=== PATIENT | male | born 1945 | race Caucasian/White ===

== ENCOUNTER 2017-11-08 14:48 | Emergency (ER) | payer MEDICARE ==
[2017-11-08] MEDS ORDERED: predniSONE 20 MG TAB ONE (15:26)
--- NOTE | 2017-11-08 16:17 | RAD ---
TWO VIEWS OF THE CHEST 11/08/17 COMPARISON: 08/21/16 HISTORY: Shortness of breath, fever and cough. FINDINGS: There is free intraperitoneal air beneath bilateral hemidiaphragms. Catheter tubing overlies the expe cted location of the stomach. Nonspecific increased linear interstitial densities are noted bilateral ly with pulmonary hyperinflation. No focal consolidation or alveolar edema. Vertically oriented increased linear density noted in medial left lung base, likely on the basis of v ascular structures. IMPRESSION: Findings concerning for significant free intraperitoneal air beneath bilateral hemidiaphragms, suspic ious for bowel perforation. Results called to Dr. Cesar, 4:05 p.m., 11/08/17. Code CR POS: [facility]
== END 2017-11-08 16:56 | disposition home or self-care (01) ==
LOC: SCSER 14:48
DX: J44.1 Chronic obstructive pulmonary disease with (acute) exacerbation (principal); F41.9 Anxiety disorder, unspecified; F32.9 Major depressive disorder, single episode, unspecified; Z87.891 Personal history of nicotine dependence
CPT/HCPCS: 71020; J7506; J7620

== ENCOUNTER 2017-11-14 05:55 | Day surgery (SDC) | payer OTHER ==
[2017-11-13 12:43] VITALS: BMI 31.9
--- NOTE | 2017-11-14 08:24 | HP ---
CHIEF COMPLAINT: ReShape balloon. HISTORY OF PRESENT ILLNESS: Patient is a 71-year-old male, who has had a ReShape balloon in place fo r over 6 months. He is here for removal. PAST MEDICAL HISTORY: Significant for gastroesophageal reflux, anxiety, depression, hyperlipidemia. PAST SURGICAL HISTORY: He had a cholecystectomy, neck surgery, and ReShape balloon. MEDICATIONS: Calcium, multivitamins, omeprazole, lorazepam, duloxetine, eszopiclone, Anoro Ellipta, atorvastatin, CoQ10. ALLERGIES: No known drug allergies. FAMILY HISTORY: Father . Family history unknown. Mother with cancer. SOCIAL HISTORY: He is . No alcohol, occasional tobacco. PHYSICAL EXAMINATION: VITAL SIGNS: Height 68, weight 229, body mass index 34. GENERAL: Well-developed, well-nourished male, in no apparent distress. HEENT: Unremarkable. LUNGS: Clear. HEART: Regular rate and rhythm. ABDOMEN: Soft, nontender, good bowel sounds. EXTREMITIES: Good pulses. No pedal edema. ASSESSMENT: ReShape balloon. PLAN: Endoscopic removal. CONSENT: I discussed the planned procedure as well as risk of bleeding, perforation, and aspiration. He understands and gives informed consent.
--- NOTE | 2017-11-14 08:39 | OP ---
PREOPERATIVE DIAGNOSIS: ReShape balloon. SURGEON: Jack Gonzalez M.D. PROCEDURE PERFORMED: Esophagogastroduodenoscopy with removal of ReShape balloon. INDICATIONS: This is a 71-year-old male who has had a ReShape balloon for now over 6 months, has had good success. He is here for removal. FINDINGS: Intact system. PROCEDURE: After informed consent was obtained, the patient was taken to the endoscopy suite, given IV sedation and she was placed in the left lateral decubitus position. Video endoscope was inserted under direct vision through the esophagus into the stomach. Stomach insufflated with air. The first balloon was encountered. The drill was then inserted through the channel on the scope applied to th e balloon surface. The balloon was punctured. The catheter inserted into the balloon. The blade re tracted and suction applied and 450 mL of fluid removed, then the catheter was retracted and the seco nd balloon found. That was advanced. The drill was used to perforate the balloon wall. The cathete r inserted. The blade retracted and again 450 mL removed. The aspirating catheter was removed from the scope and an alligator grasper was then inserted. Each balloon was grasped and further perforate d by tearing the balloon with the alligator grasper, then this was removed, nipple was found. The sn are inserted. It was snared grasped and the balloon system was removed intact. Then the scope was r einserted into the stomach. Gastric mucosa inspected. There was no evidence of ulcerations or injur y. No abnormalities seen. The scope retroflexed. The stomach decompressed and the scope removed. Patient tolerated the procedure well and transferred to recovery in good condition.
[2017-11-14] MEDS ORDERED: Propofol 200 MG/20 ML VIAL ONE (15:21)
== END 2017-11-14 09:10 ==
LOC: SDC 05:55
PROVIDERS: ATTEND Surgery
PROC: 0DP Gastrointestinal System, Removal (ICD-10-PCS; principal; 2017-11-14)
DX: Z46.51 Encounter for fitting and adjustment of gastric lap band (principal); K21.9 Gastro-esophageal reflux disease without esophagitis; F32.9 Major depressive disorder, single episode, unspecified; F41.9 Anxiety disorder, unspecified; E78.5 Hyperlipidemia, unspecified; J44.9 Chronic obstructive pulmonary disease, unspecified; Z79.899 Other long term (current) drug therapy; Z91.013 Allergy to seafood; Z98.1 Arthrodesis status; Z90.49 Acquired absence of other specified parts of digestive tract; Z98.890 Other specified postprocedural states; Z87.891 Personal history of nicotine dependence
CPT/HCPCS: J2704

== ENCOUNTER 2017-12-19 10:03 | Outpatient (CLI) | payer MEDICARE | END 2017-12-19 10:04 | disposition home or self-care (01) | LOC: BICRAD 10:03 | PROVIDERS: ATTEND Neurological Surgery | DX: M47.22 Other spondylosis with radiculopathy, cervical region (principal); Z98.1 Arthrodesis status | CPT/HCPCS: 72040 ==

== ENCOUNTER 2018-01-09 08:52 | Outpatient (CLI) | payer MEDICARE ==
--- NOTE | 2018-01-09 09:59 | RAD ---
CERVICAL SPINE 4 VIEWS: HISTORY: Cervical radiculopathy. COMPARISON: 02/23/15. FINDINGS: Anterior plate and screws again noted transfixing C6, C7, and T1. Loss of disk space noted at C3-4, C4-5, and C5-6 with hypertrophic spurs from these vertebrae which appear similar to the prior exam, b ut the degenerative changes have progressed somewhat since that study. Posterior spondylitic changes are again noted at C3-4, C4-5, and C5-6. IMPRESSION: Prominent degenerative changes at C3-4, C4-5, and C5-6. Degenerative changes have progressed since t he 02/23/15 exam. POS: [facility]
--- NOTE | 2018-01-09 11:21 | MRI ---
CERVICAL SPINE MRI WITHOUT CONTRASTs: Date: 01/09/18 HISTORY: Cervical radiculopathy. Cervical fusion. Bilateral arm weakness and pain. COMPARISON: None. CORRELATION; Cervical spine radiograph dated 01/09/18. TECHNIQUE: MRI cervical spine is performed without intravenous Gadolinium administration. Multisequential, multi planar imaging performed. FINDINGS: There is metallic susceptibility artifact associated with anterior fusion plate at C6, C7, and T1. Re mainder of the cervical vertebra demonstrate appropriate T1 marrow signal intensity. No significant S TIR hyperintensity to suggest vertebral body edema or ligamentous injury. Visualized brain parenchyma, cervicomedullary junction, cervical cord, and the upper thoracic cord bean ve a normal size and signal intensity. C2-C3: No significant disc osteophyte complex. No significant central canal stenosis. Foramina patent. C3-4: Broad based disc osteophyte complex abuts the thecal sac. There is mild mass effect upon the right he micord. Overall, there is mild central canal stenosis. Degenerative changes in bilateral uncovertebra l joints result in moderate bilateral foraminal narrowing. C4-C5: Broad based disc osteophyte complex abuts the thecal sac. There is minimal mass effect upon the cervi rony cord. No T2 hyperintensities in the cord. Mild central canal stenosis. Degenerative changes of th e right uncovertebral joint result in moderate right foraminal narrowing. Left neural foramen is juarez nt. C5-C6: Broad based disc osteophyte complex abuts the thecal sac. Ventral subarachnoid space is still maintai alyssia. Mild central canal stenosis. No T2 hyperintensity of the cord. Degenerative changes in bilateral uncovertebral joints result in moderate right and left foraminal narrowing. C6-C7: No obvious disc osteophyte complex. No high grade central canal stenosis. Foramina are patent. C7-T1: No obvious disc osteophyte complex. No significant central canal stenosis. Neural foramina are patent bilaterally. T1-T2: No significant disc osteophyte complex. No significant central canal stenosis. Neural foramina are pa tent. IMPRESSION: 1. Cervical fusion changes as above. 2. Varying degrees of central canal stenosis and foraminal narrowing as above. No high grade central canal stenosis. However, there is multilevel moderate foraminal narrowing as defined above. POS: OFF
== END 2018-01-09 08:53 | disposition home or self-care (01) ==
LOC: TBSIIMAG 08:52
PROVIDERS: ATTEND Neurological Surgery
DX: M47.22 Other spondylosis with radiculopathy, cervical region (principal); M99.81 Other biomechanical lesions of cervical region; Z98.1 Arthrodesis status
CPT/HCPCS: 72040; 72141

== ENCOUNTER 2018-02-20 22:16 | Inpatient (IN) | payer MEDICARE ==
[2018-02-20] MEDS ORDERED: Ibuprofen 800 MG TAB ONE (22:59)
[2018-02-20 23:17] LABS: Bilirubin Negative (Negative); Blood, Urine Trace (Negative); Clarity CLOUDY (Clear); Glucose, Urine (Dipstick) Negative (Negative); Leukocyte Large (Negative); Nitrite Negative (Negative); Protein, Urine (Dipstick) Negative (Neg-Trace); Specific Gravity, Urine 1.022 (1.002-1.036); Urobilinogen 0.2 mg/dL (0.2-1.0)
[2018-02-20 23:19] LABS: Bacteria/HPF Rare-Few HPF (None Seen); Pathc Cast-AUWi Flag 0.87 (0-2.49); RBC/HPF 0-3 HPF (0-3); Squamous Epithelial None Seen HPF (0-3)
--- NOTE | 2018-02-20 23:24 | RAD ---
PORTABLE AP CHEST X-RAY 02/20/18 HISTORY: Fever and anxiety. COMPARISON: 11/08/17. FINDINGS: There is increased patchy density at the right lung base which may be related to pneumonia. There is soft tissue density overlying the left lung base which limits evaluation. Cardiac silhouette is magni fied by projection but stable in size compared to the prior study and is probably mildly enlarged. Th e pulmonary vasculature is within normal limits. Vascular calcifications seen in the thoracic aorta. IMPRESSION: 1. Increased density medial right lung base worrisome for pneumonia. Followup to resolution is r ecommended. 2. Suboptimal evaluation of the left lung base. POS: [facility]
[2018-02-20 23:31] LABS: Hyaline Casts/LPF 0-3 HYALINE CAST LPF (0-3 Hyaline)
[2018-02-20] MEDS ORDERED: Azithromycin 500 MG VIAL ONE (23:48)
[2018-02-20 23:51] LABS: #Basophils 0.1 thou/uL (0.0-0.2); #Lymphocytes 0.9 thou/uL (1.20-3.40); #Monocytes 1.5 thou/uL (0.11-0.59); #Neutrophils 9.8 thou/uL (1.40-6.50); %Basophils 0.6 % (0.0-1.0); %Eosinophils 0.3 % (0.0-10.0); %Lymphocytes 7.3 % (21.0-51.0); %Monocytes 12.2 % (0.0-10.0); %Neutrophils 79.7 % (42.0-75.0); Hemoglobin 15.3 g/dL (14.0-18.0); Mean Corpuscular HGB CONC 33.1 g/dL (32.0-36.0); Mean Corpuscular Hemoglobin 30.8 pg (27.0-31.0); Mean Corpuscular Volume 93.1 fl (80.0-94.0); Mean Platelet Volume 6.9 fL (7.4-10.4); Platelet Count 203 thou/uL (130-400); RBC Distribution Width 13.6 % (11.5-14.5); Red Blood Cell (RBC) Count 4.98 mill/uL (4.70-6.10); White Blood Cell (WBC) Count 12.2 thou/uL (4.8-10.8)
[2018-02-21 00:05] LABS: ALT (SGPT) 14 U/L (8-55); AST (SGOT) 16 U/L (5-34); Albumin 3.6 g/dL (3.4-4.8); Alkaline Phosphatase 64 U/L (40-150); Anion Gap 13 mmol/L (10-20); BUN (Urea Nitrogen) 24 mg/dL (8.4-25.7); Bilirubin, Total 1.3 mg/dL (0.2-1.2); Calc. Creatinine Clearance 0 mL/min (70-130); Calcium 8.6 mg/dL (7.8-10.44); Carbon Dioxide 23 mmol/L (23-31); Chloride 103 mmol/L (98-107); Estimated GFR-MDRD 68; Globulin 3.1 g/dL (2.4-3.5); Glucose 116 mg/dL (83-110); Potassium 3.9 mmol/L (3.5-5.1); Protein, Total 6.7 g/dL (5.8-8.1); Sodium 135 mmol/L (136-145)
--- NOTE | 2018-02-21 00:52 | PDOC.FPRHP ---
- History of Present Illness Chief Complaint: confused, SOB History of Present Illness: 72 yo male with pmhx of copd presents with confusion that started this evening. He denies shortness of breath, chest pain, cough, sputum production. He states he tilled his garden this afternoon, then had a spell where he got hot then started sweating and got cold. He called his daughter in [place] who then called EMS who brought him into the hospital. His daughter called EMS and reported that he had told her that his shortness of breath had worsened over the past 3 days. ED Course: He was given a 30ml/kg bolus of NS, an additional 1 L of NS, Azithromicin and Rocephin, as well as ibuprofen 800mg in the ER. - Allergies/Adverse Reactions Allergies Allergy/AdvReac Type Severity Reaction Status Date / Time iodine Allergy Verified 02/21/18 03:33 latex Allergy Verified 02/21/18 03:33 shellfish derived Allergy fresh Verified 02/21/18 03:33 shrimp/can eat cooked shrimp Allergy Verified 02/21/18 03:33 - Home Medications Medication Instructions Recorded Confirmed Type Acetaminophen [Tylenol Regular 650 mg PO Q4H PRN tab 02/21/18 Rx Strength] Azithromycin 250 mg PO DAILY #8 tablet 02/21/18 Rx Cefdinir [Omnicef] 300 mg PO BID #10 cap 02/21/18 Rx Umeclidinium/Vilanterol [Anoro 1 puff INH DAILY 02/21/18 02/21/18 History Ellipta 62.5/25 MCG INH] predniSONE 40 mg PO DAILY #10 tab 02/21/18 Rx - History PMHx: COPD, anxiety, depression, GERD, HLD PSHx: cholecystectomy, stomach balloon removed in October (was initially placed for weight loss). FHx:noncontributory Social: Former smoker. 2 ppd for 40 yrs. Quit 3 years ago. Denies alcohol or drug use. - Review of Systems General: reports: fever/chills, fatigue. denies: weight/appetite/sleep changes , night sweats ENT: denies: nasal congestion, rhinorrhea Respiratory: denies: cough, congestion, shortness of breath Cardiovascular: denies: chest pain, palpitation, edema, paroxysmal nocturnal dyspnea Gastrointestinal: denies: nausea, vomiting, diarrhea, constipation Genitourinary: denies: incontinence, polyuria Skin: denies: rashes, lesions, jaundice Musculoskeletal: denies: pain, tenderness, stiffness, swelling Neurological: reports: other (confusion). denies: numbness, syncope, seizure Psychological: denies: anxiety, depression - Vital signs BP: 132/52 HR: 94 RR: 18-22 Tmax: 101.7 Pox: 92% on 3L Wt: 104kg - Physical Exam Constitutional: NAD, awake, alert and oriented, well developed HEENT: normocephalic and atraumatic, PERRLA Neck: no LAD, no JVD, no thyromegaly Heart: RRR, normal S1/S2, no murmurs/rubs/gallops -Lungs: decreased breath sounds bilaterally, wheezing on the right side, crackles bilaterally in lower lung lobes Abdomen: soft, non-tender, bowel sounds present, no masses/distention Musculoskeletal: normal structure, normal tone Neurological: no focal deficit, normal sensation Skin: no rash/lesions, capillary refill <2 seconds Heme/Lymphatic: no unusual bruising or bleeding, no purpura Psychiatric: normal mood and affect, good judgment and insight FMR H&P: Results - Labs Result Diagrams: 02/21/18 04:27 02/21/18 04:27 Lab results: WBC 12.2 thou/uL (4.8-10.8) H 02/20/18 23:24 Hgb 15.3 g/dL (14.0-18.0) 02/20/18 23:24 Hct 46.3 % (42.0-52.0) 02/20/18 23:24 MCV 93.1 fl (80.0-94.0) 02/20/18 23:24 Plt Count 203 thou/uL (130-400) 02/20/18 23:24 Neutrophils % 79.7 % (42.0-75.0) H 02/20/18 23:24 Sodium 135 mmol/L (136-145) L 02/20/18 23:24 Potassium 3.9 mmol/L (3.5-5.1) 02/20/18 23:24 Chloride 103 mmol/L (98-107) 02/20/18 23:24 Carbon Dioxide 23 mmol/L (23-31) 02/20/18 23:24 BUN 24 mg/dL (8.4-25.7) 02/20/18 23:24 Creatinine 1.07 mg/dL (0.6-1.3) 02/20/18 23:24 Glucose 116 mg/dL (83-110) H 02/20/18 23:24 Lactic Acid 1.3 mmol/L (0.5-2.2) 02/20/18 23:24 Calcium 8.6 mg/dL (7.8-10.44) 02/20/18 23:24 Total Bilirubin 1.3 mg/dL (0.2-1.2) H 02/20/18 23:24 AST 16 U/L (5-34) 02/20/18 23:24 ALT 14 U/L (8-55) 02/20/18 23:24 Alkaline Phosphatase 64 U/L (40-150) 02/20/18 23:24 Serum Total Protein 6.7 g/dL (5.8-8.1) 02/20/18 23:24 Albumin 3.6 g/dL (3.4-4.8) 02/20/18 23:24 Urine Ketones Negative mg/dL (Negative) 02/20/18 23:12 Urine Blood Trace (Negative) H 02/20/18 23:12 Urine Nitrite Negative (Negative) 02/20/18 23:12 Ur Leukocyte Esterase Large (Negative) H 02/20/18 23:12 Urine RBC 0-3 HPF (0-3) 02/20/18 23:12 Urine WBC Greater Than 50-TNTC HPF (0-3) H 02/20/18 23:12 Ur Squamous Epith Cells None Seen HPF (0-3) 02/20/18 23:12 Urine Bacteria Rare-Few HPF (None Seen) 02/20/18 23:12 - Radiology Interpretation Chest x-ray Status: image reviewed by me, report reviewed by me (RLL infiltrate, difficult to see left lung base) FMR H&P: A/P - Problem List (1) Sepsis Status: Acute Code(s): A41.9 - SEPSIS, UNSPECIFIED ORGANISM (2) Acute respiratory failure with hypoxia Status: Acute Code(s): J96.01 - ACUTE RESPIRATORY FAILURE WITH HYPOXIA (3) Pneumonia Status: Acute Code(s): J18.9 - PNEUMONIA, UNSPECIFIED ORGANISM (4) COPD exacerbation Status: Acute Code(s): J44.1 - CHRONIC OBSTRUCTIVE PULMONARY DISEASE W (ACUTE ) EXACERBATION (5) Hypertension Status: Acute Code(s): I10 - ESSENTIAL (PRIMARY) HYPERTENSION (6) Anxiety and depression Status: Chronic Code(s): F41.9 - ANXIETY DISORDER, UNSPECIFIED; F32.9 - MAJOR DEPRESSIVE DISORDER, SINGLE EPISODE, UNSPECIFIED (7) HLD (hyperlipidemia) Status: Acute Code(s): E78.5 - HYPERLIPIDEMIA, UNSPECIFIED (8) GERD (gastroesophageal reflux disease) Status: Acute Code(s): K21.9 - GASTRO-ESOPHAGEAL REFLUX DISEASE WITHOUT ESOPHAGITIS - Plan 72 yo male with a pmhx of COPD presents via EMS with confusion, shortness of breath, and a fever, admitted for acute hypoxic respiratory failure and sepsis 2 /2 pneumonia, a COPD exacerbation, and a UTI. 1.)Acute hypoxic respiratory failure- 2/2 right lower lobe PNA and a COPD exacerbation. We admitted him to inpatient medical. He is currently requiring 3L of O2 to maintain a saturation in the low 90s. We will continue his O2 and wean as tolerated. We will also start him on azithromicin and rocephin for his pneumonia, and prednisone with duonebs sidney, and albuterol prn for his copd exacerbation. 2.)Sepsis 2/2 right lower lobe pna and a copd exacerbation-see plan above. In addition we sent blood and urine cultures as his UA showed +LE and few bacteria. We will provide tylenol prn for fever. 3.)Right lower lobe pna-the cxr could not evaluate his left lower lung field. So we ordered a 2 view standing cxr to futher evaluate. He was placed on antibiotics as stated above. He can likely be weaned to PO antibiotics tomorrow. 4.)COPD exacerbation-states he has oxygen at home but does not use it. He is currenlty requiring 3L which is new for him. We started him on duonebs scheduled every 4 hours and albuterol prn for shortness of breath. We also started him on prednisone 40mg daily for a total of 5 days and a zpack and rocephin for antibiotics. He can be transitioned to omnicef tomorrow. 5.) Asymptomatic bacteruria-We sent a urine culture. Pt denies dysuria, frequency. 6.)HTN-controlled. we will restart him on his home medications 7.)HLD-controlled. we will restart him on his home medications 8.)GERD-controlled. we will restart him on his home medications 9.)Anxiety-controlled. we will restart him on his home meds 10.)Depression-controlled. we will restart him on his home meds 11.)COPD-uncontrolled. see #1,2, and 4; additionall he couldn't remember what he takes for COPD management. He would likely benefit from albuterol prn and pulmicort daily. Dispo: Pt wants to be discharged early tomorrow morning for a memorial service. He has home O2, just does not use it very often. FMR H&P: Upper Level - Pertinent history 72 yo HF with PMHx COPD, former tobacco use presented to ED for SOB and confusion. Per ED record, pt told his daughter about worsening SOB over last 3 days. This afternoon, pt endorses feeling very confused for period of a few hours. He also endorsed feeling very warm followed by episode of chills. Pt has hx COPD with oxygen at home although rarely used per pt. Denies ever requiring hospitalization for COPD. Denies cough, congestion, sore throat, N/V/D. Denies dysuria. Denies joint pain. Febrile to 101.7 in ED. O2 84% so placed on oxygen. In ED, given IV fluids and abx. Pts confusion resolved. Breathing comfortably following breathing treatment and concurrent oxygen supplementation. - Pertinent findings PE: General NAD, relaxing in bed, nasal cannula in place Lungs: scattered coarse rales bilaterally, sporadic end expiratory wheezes, no rhonchi; no increased work of breathing Cardiac: RRR, S1 S2 present, no murmur/rub/gallop Abd: soft, nontender/nondistended, BS+ Skin: no rash or atypical lesions; cap refill < 2 secs - Plan Date/Time: 02/21/18 0048 1. Acute hypoxic respiratory failure 02 84% prior to oxygen supplementation. Hypoxia improved with oxygen. Stable. See below for mgmt. 2. Sepsis 2/2 RLL PNA vs COPD exacerbation. Meets sepsis criteria with WBCs, HR , and temp. Fevers documented in ED. CXR suggests potential RLL infiltrate with difficult to assess LLL due to soft tissue artifact. Plan to repeat CXR with standing 2 view approach to better assess lung bases. Pt denies cough or other upper respiratory symptoms. Fever and confusion point towards an infectious process. CURB-65 of 3 puts at higher risk of mortality. SOB, hypoxia, and exam with diffuse wheezing/rales suggest potential COPD exacerbation in addition to or in place of PNA dx. Blood cx drawn. Cont beta-lactam and macrolide. Add steroids to cover COPD exacerbation and improve overall lung function. Heavy IV fluids (s/p 3L in ED). Confusion already resolved. Pt resting comfortably with oxygen. NSAIDs for fever/pain. Reassess in AM. Admit to medical with expected 2 day stay. 3. Asymptomatic bacteriuria. UA shows >50 WBCs, + leukocytes, and rare bacteria. Cloudy urine visualized. Check urine culture. Asymptomatic. Rocephin would cover an infection if present. 4. COPD. Continue home meds. Duonebs prn. May have offered most improvement for symptoms in ED treatment. Start steroids see above. 4. Anxiety/depression. Cont home meds. 5. Hyperlipidemia. Cont home meds. 6. Prophylaxis. Prophylactic lovenox. I, Alexandr Pearson, have evaluated this patient and agree with findings/plan as outlined by internship resident. Pertinent changes/additions are listed here. Attending Addendum - Attending Addendum Date/Time: 02/21/18723 I personally evaluated the patient and discussed the management with Dr. Lawson and Michel. I agree with the History, Examination, Assessment and Plan documented above with any addition or exceptions noted below. The patient was admitted for right lower lobe pneumonia and was treated with azithromycin and Rocephin. Upon my exam the patient was sitting up on the side of the bed asking to be discharged. Oxygen had been weaned down to 1/2 liter via nasal canula. On room air sats were 90%. This morning lung exam was without wheezes or rhonchi. Patient was counseled on the risks of going home from the hospital and his need for oxygen. Family was going to bringn his O2 to the hospital. He strongly wants to leave to go to a memorial service. Patient verbalizes understanding of the risk. Will send home with steroids and antibiotics. Advised him to follow-up with his PCP on Friday.
[2018-02-21] MEDS ORDERED: Albuterol Sulfate 2.5 mg/3 ml Neb NEB PRN (01:15)
[2018-02-21] MEDS ORDERED: Acetaminophen 325 MG TAB PO PRN (03:03)
[2018-02-21] MEDS ORDERED: Ondansetron HCl/PF 4 MG/2 ML Vial IVP PRN (03:03)
[2018-02-21] MEDS ORDERED: Ondansetron ODT 4 MG TAB SL PRN (03:03)
[2018-02-21 03:23] VITALS: TEMP 98.1
[2018-02-21 05:01] LABS: #Lymphocytes 1.4 thou/uL (1.20-3.40); #Monocytes 1.6 thou/uL (0.11-0.59); #Neutrophils 9.6 thou/uL (1.40-6.50); %Basophils 0.1 % (0.0-1.0); %Eosinophils 0.3 % (0.0-10.0); %Lymphocytes 11.1 % (21.0-51.0); %Monocytes 12.9 % (0.0-10.0); %Neutrophils 75.6 % (42.0-75.0); Hemoglobin 13.3 g/dL (14.0-18.0); Mean Corpuscular HGB CONC 33.1 g/dL (32.0-36.0); Mean Corpuscular Hemoglobin 30.6 pg (27.0-31.0); Mean Corpuscular Volume 92.7 fl (80.0-94.0); Mean Platelet Volume 6.9 fL (7.4-10.4); Platelet Count 188 thou/uL (130-400); RBC Distribution Width 13.6 % (11.5-14.5); Red Blood Cell (RBC) Count 4.33 mill/uL (4.70-6.10); White Blood Cell (WBC) Count 12.7 thou/uL (4.8-10.8)
[2018-02-21 05:09] LABS: Anion Gap 10 mmol/L (10-20); BUN (Urea Nitrogen) 21 mg/dL (8.4-25.7); Calc. Creatinine Clearance 0 mL/min (70-130); Calcium 7.6 mg/dL (7.8-10.44); Carbon Dioxide 26 mmol/L (23-31); Chloride 108 mmol/L (98-107); Estimated GFR-MDRD 77; Glucose 122 mg/dL (83-110); Potassium 3.8 mmol/L (3.5-5.1); Sodium 140 mmol/L (136-145)
[2018-02-21 06:36] VITALS: BMI 35.4
[2018-02-21] MEDS: Sodium Chloride 0.9% 1,000 ML IV SCH ×2 (06:49)
[2018-02-21 08:16] VITALS: BP 107/63
[2018-02-21] MEDS ORDERED: predniSONE 20 MG TAB PO SCH (09:00)
--- NOTE | 2018-02-21 09:42 | RAD ---
2 VIEWS CHEST: Date: 02/21/18 PROVIDED CLINICAL HISTORY: Right lower lobe infiltrate. FINDINGS: Comparison made with the study dated 02/20/18. Cardiac and mediastinal silhouette is unchanged in appearance. Bibasilar subsegmental atelectatic typ e changes are seen. Emphysematous changes are suggested. No definite focal consolidation, pleural flu id, or pneumothorax apparent. IMPRESSION: No definite evidence for an acute cardiopulmonary process. POS: [facility]
[2018-02-21 09:52] LABS: Legionella Urinary Ag Negative (Negative); Strep pneumo Urine Ag NEGATIVE (NEGATIVE)
--- NOTE | 2018-02-21 12:13 | DIS-2 ---
DATE OF ADMISSION: 02/21/2018 DATE OF DISCHARGE: 02/21/2018 RESIDENT: Jean-Paul Torres M.D. ADMITTING ATTENDING: Kelle Deal M.D. DISCHARGE ATTENDING: Kelle Deal M.D. CONSULTS: None. PROCEDURES: 1. Chest x-ray on 02/20/2018. Impression: Increased density medial right lung base, worrisome for pneumonia. 2. Chest x-ray on 02/21/2018. Impression: No definite evidence for an acute cardiopulmonary proces s. 3. Influenza A and B negative. 4. Urine legionella antigen negative, and urine strep pneumoniae antigen negative. ADMISSION DIAGNOSIS: Acute respiratory failure with hypoxia. SECONDARY DIAGNOSES: 1. Chronic obstructive pulmonary disease exacerbation. 2. Pneumonia. 3. Sepsis. 4. Hypertension. 5. Hyperlipidemia. 6. Gastroesophageal reflux disease. DISCHARGE MEDICATIONS: Continue home medicines. 1. Zoloft 25 mg p.o. daily. 2. Lorazepam 0.5 mg p.o. at bedtime. 3. Cymbalta 60 mg p.o. daily. 4. Eszopiclone 3 mg p.o. at bedtime. 5. Lipitor 10 mg p.o. daily. 6. Ubidecarenone 100 mg p.o. daily. 7. Omeprazole 20 mg p.o. daily. 8. [place] 7.5/325, 1-2 tabs p.o. q.4 hours p.r.n. 9. Anoro Ellipta 62.5/25 mg 1 puff INH daily. NEW HOME MEDICINES: 1. Azithromycin 250 mg p.o. daily for 7 days. 2. Cefdinir 300 mg p.o. b.i.d. for 5 days. 3. Prednisone 40 mg p.o. daily for 5 days. HISTORY OF PRESENT ILLNESS AND HOSPITAL COURSE: Mr. Saúl Muhammad is a 72-year-old male with past medical history of COPD who presented to the ED on the evening of the with confusion. He denied any shortness of breath, chest pain, cough or sputum production. 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 He called his daughter in [place] who then called the EMS and brought him to the hospital . His daughter called the EMS and reported that he had told her that his shortness of breath had wor sened over the past 3 days. The patient is a former smoker with [id number] history, but quit 3 yea rs ago. In the ED, the patient got a 30 mL/kg bolus of normal saline and additionally 1 liter of nor mal saline, azithromycin and Rocephin as well as ibuprofen. Chest x-ray showed possible right lower lobe infiltrate, but it was difficult to visualize the lung bases. Repeat chest x-ray showed no acut e cardiopulmonary process. The patient was admitted for acute hypoxic respiratory failure likely sec ondary to right lower lobe pneumonia and COPD exacerbation. He was requiring 3 liters of O2 to maint ain saturation in the low 80s initially. By the morning time, the patient was requiring about half a liter of O2 to maintain sats in the low 90s. The patient stated that he has oxygen at home and he o ccasionally uses it. The patient stated that he really wanted to leave in the morning because he had [facility] that he wanted to attend. He says that he was feeling better. He was experienci ng no confusion overnight and no confusion in the morning. He denied any shortness of breath. 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 The patient stated that h ac was feeling much better by the morning time and that he was ready for discharge. He spoke to his e x- who went to his house, picked up his oxygen and brought it to the hospital. The patient was d ischarged and sent home with a working oxygen that he brought from his house with instruction to foll ow up with his PCP sometime within the next 1 week. The patient was in agreement with this plan. DISPOSITION: Stable. DISCHARGE INSTRUCTIONS: 1. Location: Home. 2. Diet: Heart healthy. 3. Activity: As tolerated. 4. Followup: With primary care provider within the next week.
[2018-02-21] MEDS ORDERED: cefTRIAXone\\ROCEPHIN 1 GM in Syringe 10 ML SLOW IVP SCH (20:00)
[2018-02-21] MEDS ORDERED: Azithromycin 500 MG in Sodium Chloride 0.9% 250 ML 250 ML IVPB SCH (21:00)
--- NOTE | 2018-03-05 15:00 | EKG ---
Test Reason : Blood Pressure : / mmHG Vent. Rate : 078 BPM Atrial Rate : 078 BPM P-R Int : 166 ms QRS Dur : 132 ms QT Int : 390 ms P-R-T Axes : 040 -24 020 degrees QTc Int : 444 ms Sinus rhythm with Premature atrial complexes with Abberant conduction Right bundle branch block Abnormal ECG Confirmed by GABRIELLA FRANCO ([id number]), senior editor STEVO ETIENNE ([id number]) on 03/05/2018 3:00:13 PM Referred By: Confirmed By:GABRIELLA FRANCO
== END 2018-02-21 11:02 | disposition home or self-care (01) | DRG 871 ==
LOC: ERS 22:16 → SURG A 02-21 02:48
PROVIDERS: ADMIT Family Medicine; ATTEND Family Medicine
DX: A41.9 Sepsis, unspecified organism (principal); J96.01 Acute respiratory failure with hypoxia; J18.9 Pneumonia, unspecified organism; J44.1 Chronic obstructive pulmonary disease with (acute) exacerbation; J44.0 Chronic obstructive pulmonary disease with (acute) lower respiratory infection; I10 Essential (primary) hypertension; F41.9 Anxiety disorder, unspecified; R65.20 Severe sepsis without septic shock; F32.9 Major depressive disorder, single episode, unspecified; E78.5 Hyperlipidemia, unspecified; K21.9 Gastro-esophageal reflux disease without esophagitis; R82.71 Bacteriuria; Z99.81 Dependence on supplemental oxygen; Z87.891 Personal history of nicotine dependence; Z88.8 Allergy status to other drugs, medicaments and biological substances; Z91.040 Latex allergy status; Z91.013 Allergy to seafood; Z79.899 Other long term (current) drug therapy
CPT/HCPCS: 36415; 71045; 71046; 80048; 80053; 81003; 81015; 83605; 84145; 85025; 87040; 87077; 87086; 87186; 87804; 87899; 93005; 94640; 94760; 96365; 96375; A4216; J0456; J0696; J7506; J7620

== ENCOUNTER 2019-02-01 07:40 | Outpatient (CLI) | payer MEDICARE ==
--- NOTE | 2019-02-01 08:52 | CT ---
CT CHEST WITHOUT CONTRAST PULMONARY LUNG SCAN: Date: 02/01/19 HISTORY: Personal history of nicotine dependence. COMPARISON: Chest radiograph dated 02/21/18. FINDINGS: Lung screening specific (Lung-RADS): No suspicious pulmonary nodules. Potentially Significant Incidentals (Lung-RADS category S): Negative. Pulmonary Incidentals: Scarring left lung base. Mild bronchiectasis left lung base. Calcified granul omas. Other Incidentals: Multiple calcified lymph nodes in the pretracheal mendoza chain, as well as subcari nal mendoza chain. Right infrahilar calcifications are present. There is lipomatous hypertrophy of the interatrial septum. No significant pericardial effusion. Limited evaluation of the upper abdomen appe ars unremarkable. No displaced rib fracture. No suspicious osteolytic or osteoblastic lesions. IMPRESSION: 1. Lung-RADS category 2: Benign appearance or behavior. Continued follow-up low dose screening CT i n 1 year. 2. Lung-RADS category S: Negative. No new or unknown potentially significant incidental findings re quiring urgent additional evaluation. POS: CHAPARRO
== END 2019-02-01 07:41 | disposition home or self-care (01) ==
LOC: CT 07:40
PROVIDERS: ATTEND Family Medicine
DX: Z87.891 Personal history of nicotine dependence (principal)
CPT/HCPCS: G0297

== ENCOUNTER 2019-07-10 09:01 | Emergency (ER) | payer MEDICARE ==
[2019-07-10 10:28] LABS: #Basophils 0.1 thou/uL (0.0-0.2); #Eosinphils 0.2 thou/uL (0.0-0.7); #Lymphocytes 1.1 thou/uL (1.20-3.40); #Monocytes 0.7 thou/uL (0.11-0.59); #Neutrophils 5.1 thou/uL (1.40-6.50); %Basophils 0.9 % (0.0-1.0); %Eosinophils 3.1 % (0.0-10.0); %Lymphocytes 15.8 % (21.0-51.0); %Monocytes 9.6 % (0.0-10.0); %Neutrophils 70.6 % (42.0-75.0); Hemoglobin 14.2 g/dL (14.0-18.0); Mean Corpuscular HGB CONC 32.5 g/dL (32.0-36.0); Mean Corpuscular Hemoglobin 30.9 pg (27.0-31.0); Mean Corpuscular Volume 95.1 fL (78.0-98.0); Mean Platelet Volume 7.1 fL (7.4-10.4); Platelet Count 210 thou/uL (130-400); RBC Distribution Width 12.5 % (11.5-14.5); Red Blood Cell (RBC) Count 4.58 mill/uL (4.70-6.10); White Blood Cell (WBC) Count 7.2 thou/uL (4.8-10.8)
[2019-07-10 10:52] LABS: ALT (SGPT) Less than 7 U/L (8-55); AST (SGOT) 15 U/L (5-34); Albumin 3.6 g/dL (3.4-4.8); Alkaline Phosphatase 71 U/L (40-150); Anion Gap 13 mmol/L (10-20); BUN (Urea Nitrogen) 15 mg/dL (8.4-25.7); Bilirubin, Total 1.6 mg/dL (0.2-1.2); Calc. Creatinine Clearance 0 mL/min (70-130); Calcium 9.4 mg/dL (7.8-10.44); Carbon Dioxide 25 mmol/L (23-31); Chloride 104 mmol/L (98-107); Estimated GFR-MDRD Greater than 90; Globulin 3.1 g/dL (2.4-3.5); Glucose 94 mg/dL (83-110); Lipase 27 U/L (8-78); Potassium 4.7 mmol/L (3.5-5.1); Protein, Total 6.7 g/dL (5.8-8.1); Sodium 137 mmol/L (136-145)
--- NOTE | 2019-07-10 13:20 | CT ---
CT Abdomen Pelvis WO Con: 07/10/2019 10:10 AM HISTORY: Abdominal pain and bulge in the abdomen for a few months COMPARISON: None. TECHNIQUE: Multiple contiguous axial images were obtained and a CT of the abdomen and pelvis without IV contrast . Oral contrast was administered. Coronal reformats were performed. FINDINGS: This examination is limited for the evaluation of solid organs and vascular structures due to the lac k of intravenous contrast. Lower Chest: within normal limits. Abdomen: Liver: Nonspecific hypodensities in liver measuring up to 1.4 cm in size may represent cysts. Bile Ducts: Normal caliber. Gallbladder: Absent Pancreas: within normal limits. Spleen: Multiple calcified granulomas. Adrenals: within normal limits. Kidneys: within normal limits. Pelvis: Reproductive Organs: Calcifications in the prostate. Ureters: within normal limits. Bladder: within normal limits. Bowel: Normal caliber. Normal appendix. Mesenteric Lymph Nodes: No enlarged mesenteric lymph nodes. Peritoneum: No ascites or free air, no fluid collection. Vessels: Atherosclerotic calcifications in the aorta Retroperitoneum: within normal limits. Abdominal Wall: 1.4 cm fat-containing ventral hernia. Bones: Degenerative changes in the spine. IMPRESSION: 1. Fat-containing ventral hernia 2. Likely hepatic cysts
[2019-07-10] MEDS ORDERED: Iopamidol 370 76% 50 ML VIAL FS ONE (16:13)
== END 2019-07-10 13:36 | disposition home or self-care (01) ==
LOC: ERS 09:01
DX: K43.9 Ventral hernia without obstruction or gangrene (principal); J44.9 Chronic obstructive pulmonary disease, unspecified; F41.9 Anxiety disorder, unspecified; Z87.891 Personal history of nicotine dependence
CPT/HCPCS: 74176; 80053; 83605; 83690; 85025; 96360; Q9967

== ENCOUNTER 2019-07-27 06:01 | Day surgery (SDC) | payer MEDICARE ==
[2019-07-26 13:35] VITALS: BMI 32.6
[2019-07-27] MEDS ORDERED: Fentanyl 100 MCG/2 ML VIAL ONE (06:17)
[2019-07-27] MEDS ORDERED: Bupivacaine/Epinephrine 0.25% 30 ML VIAL ONE (06:38)
[2019-07-27] MEDS ORDERED: Lidocaine 2% PF 5 ML VIAL ONE (06:38)
[2019-07-27] MEDS ORDERED: Bupivacaine PF 0.5% 30 ML VIAL ONE (06:38)
[2019-07-27] MEDS ORDERED: Midazolam HCl 2 mg/2 ml Vial ONE (07:02)
--- NOTE | 2019-07-27 10:30 | OP ---
DATE OF PROCEDURE: 07/27/2019 PREOPERATIVE DIAGNOSIS: Ventral hernia. POSTOPERATIVE DIAGNOSIS: Ventral hernia. PROCEDURE PERFORMED: Ventral hernia repair with mesh. ANESTHESIA: General. ESTIMATED BLOOD LOSS: Minimal. COMPLICATIONS: None. FINDINGS: Ventral hernia. DESCRIPTION OF PROCEDURE: The patient was taken to the operating room and laid supine on the operating room table. After general anesthetic was obtained, the abdomen was shaved, prepped, and draped in a sterile fashion. A linear incision was made in the midline over the palpable abnormality. The hernia sac was found and dissected back to the fascial opening. The preperitoneal fat was dissected back into the preperitoneal space. Preperitoneal space was bluntly dissected using a wet unraveled Ray-Florentin. The 4.3-cm Ventralex ST mesh was brought into the sterile field. The underlay was placed in the preperitoneal space, its tails pulled out lateral. Tails were sewn via U-stitch of permanent braided suture to the fascia. The tails were then cut at the level of the fascia. The fascia was closed loosely over the mesh. Local anesthetic was applied. The wound was irrigated and the skin was closed using 3-0 Vicryl, 4-0 Monocryl, and Dermabond. The patient was sent to Recovery in stable condition. All instrument counts, needle counts, and lap counts were correct. Job ID: [id number]
[2019-07-27] MEDS ORDERED: Lidocaine 1% PF 5 ML VIAL ONE (11:25)
[2019-07-27] MEDS ORDERED: ePHEDrine 50 MG/ML VIAL ONE (11:25)
[2019-07-27] MEDS ORDERED: Glycopyrrolate 0.2 MG/ML 5 ML SYRINGE ONE (11:25)
[2019-07-27] MEDS ORDERED: PROPOFOL 200 MG/20 ML VIAL ONE (11:25)
[2019-07-27] MEDS ORDERED: Rocuronium Bromide 10 MG/ML (10ML VIAL) ONE (11:25)
[2019-07-27] MEDS ORDERED: Dexamethasone 20 MG/5 ML VIAL ONE (11:25)
[2019-07-27] MEDS ORDERED: Ondansetron PF 4 MG/2 ML Vial ONE (11:25)
== END 2019-07-27 10:03 | disposition home or self-care (01) ==
LOC: SDC 06:01
PROVIDERS: ATTEND Surgery
PROC: 0WUF0JZ Supplement Abdominal Wall with Synthetic Substitute, Open Approach (ICD-10-PCS; principal; 2019-07-27)
DX: K43.9 Ventral hernia without obstruction or gangrene (principal); K21.9 Gastro-esophageal reflux disease without esophagitis; J44.9 Chronic obstructive pulmonary disease, unspecified; Z91.041 Radiographic dye allergy status; Z91.013 Allergy to seafood; Z87.891 Personal history of nicotine dependence; Z79.899 Other long term (current) drug therapy
CPT/HCPCS: J0690; J1100; J2001; J2250; J2405; J2704; J3010; J3490; S0020

== ENCOUNTER 2019-07-28 16:10 | Emergency (ER) | payer MEDICARE ==
[2019-07-28 16:54] LABS: #Basophils 0.1 thou/uL (0.0-0.2); #Eosinphils 0.1 thou/uL (0.0-0.7); #Lymphocytes 1.9 thou/uL (1.20-3.40); #Neutrophils 5.9 thou/uL (1.40-6.50); %Basophils 1.1 % (0.0-1.0); %Eosinophils 1.2 % (0.0-10.0); %Monocytes 11.2 % (0.0-10.0); %Neutrophils 65.5 % (42.0-75.0); Clarity Hazy (Clear); Hemoglobin 12.6 g/dL (14.0-18.0); Mean Corpuscular HGB CONC 32.3 g/dL (32.0-36.0); Mean Corpuscular Hemoglobin 30.3 pg (27.0-31.0); Mean Corpuscular Volume 93.8 fL (78.0-98.0); Mean Platelet Volume 6.9 fL (7.4-10.4); Platelet Count 170 thou/uL (130-400); RBC Distribution Width 13.6 % (11.5-14.5); Red Blood Cell (RBC) Count 4.17 mill/uL (4.70-6.10)
[2019-07-28 17:08] LABS: ALT (SGPT) 17 U/L (8-55); AST (SGOT) 22 U/L (5-34); Albumin 3.4 g/dL (3.4-4.8); Alkaline Phosphatase 59 U/L (40-150); Anion Gap 11 mmol/L (10-20); BUN (Urea Nitrogen) 18 mg/dL (8.4-25.7); Bilirubin, Total 1.1 mg/dL (0.2-1.2); Calc. Creatinine Clearance 0 mL/min (70-130); Calcium 8.9 mg/dL (7.8-10.44); Carbon Dioxide 31 mmol/L (23-31); Chloride 105 mmol/L (98-107); Estimated GFR-MDRD 56; Globulin 2.8 g/dL (2.4-3.5); Glucose 116 mg/dL (83-110); Potassium 3.8 mmol/L (3.5-5.1); Protein, Total 6.2 g/dL (5.8-8.1); Sodium 143 mmol/L (136-145)
[2019-07-28 17:15] LABS: Bacteria/HPF Rare-Few HPF (None Seen); RBC/HPF None Seen HPF (0-3); Squamous Epithelial None Seen HPF (0-3); WBC/HPF None Seen HPF (0-3)
== END 2019-07-28 17:23 | disposition home or self-care (01) ==
LOC: SCSER 16:10
DX: R33.9 Retention of urine, unspecified (principal); J44.9 Chronic obstructive pulmonary disease, unspecified; F41.9 Anxiety disorder, unspecified; Z87.891 Personal history of nicotine dependence
CPT/HCPCS: 36415; 51702; 80053; 81001; 85025

== ENCOUNTER 2020-01-09 20:40 | Emergency (ER) | payer MEDICARE | END 2020-01-09 22:22 | disposition left against medical advice (07) | LOC: ERS 20:40 | DX: J44.1 Chronic obstructive pulmonary disease with (acute) exacerbation (principal); F41.9 Anxiety disorder, unspecified; Z87.891 Personal history of nicotine dependence | CPT/HCPCS: 93005; 94760 ==

== ENCOUNTER 2020-05-29 06:48 | Outpatient (CLI) | payer MEDICARE ==
--- NOTE | 2020-05-29 08:39 | ULT ---
ABDOMINAL AORTIC ULTRASOUND: HISTORY: Abdominal aortic aneurysm screening. FINDINGS: This exam is very technically limited. Only small portions of the aorta are visualized and the mid a consuelo measures 1.8 cm. Proximally and distally, the aorta is obscured. IMPRESSION: Extremely limited examination. Only a small segment of the mid abdominal aorta is visualized and sequeira s not appear aneurysmal. POS: KAMRAN
--- NOTE | 2020-05-29 08:58 | CT ---
EXAM: CT chest without contrast per low-dose cancer screening protocol HISTORY: History of smoking and nicotine dependence; 100 pack-year smoking history COMPARISON: 02/01/2019 TECHNIQUE: Multiple contiguous axial images were obtained in a CT of the chest without contrast per l ow-dose cancer screening protocol. Sagittal and coronal reformats were performed. FINDINGS: Pulmonary nodules: There is a calcified granuloma in the right upper lobe. There is a 4 mm well-circu mscribed nodule on image [id number] in the anterior aspect of the right upper lobe.. No focal infiltrates are seen. Pleural space: No pneumothorax or pleural effusion are seen. Heart: Cardiomegaly. Stable lipomatous hypertrophy of interatrial septum.. Mediastinum: No hilar or mediastinal lymphadenopathy appreciated on this limited noncontrast examinat ion. There are stable calcified hilar and mediastinal lymph nodes. Bones: Degenerative changes in the spine.. Visualized subdiaphragmatic structures: Unremarkable. IMPRESSION: Lung RADS category 2-benign findings. A follow-up high-resolution chest CT should be performed to con tinue screening and following the small benign nodule..
== END 2020-05-29 06:49 | disposition home or self-care (01) ==
LOC: BICULT 06:48
PROVIDERS: ATTEND Family Medicine
DX: Z13.6 Encounter for screening for cardiovascular disorders (principal); Z12.2 Encounter for screening for malignant neoplasm of respiratory organs; R91.1 Solitary pulmonary nodule; Z87.891 Personal history of nicotine dependence
CPT/HCPCS: 76775; G0297

== ENCOUNTER 2021-04-25 09:53 | Outpatient (CLI) | payer MEDICARE, OTHER | END 2021-04-25 09:54 | disposition home or self-care (01) | LOC: DTY/OP 09:53 | PROVIDERS: ATTEND Surgery | DX: E66.01 Morbid (severe) obesity due to excess calories (principal) | CPT/HCPCS: 97802 ==

== ENCOUNTER 2021-07-05 10:55 | Outpatient (CLI) | payer MEDICARE | END 2021-07-05 10:56 | disposition home or self-care (01) | LOC: BICCT 10:55 | PROVIDERS: ATTEND Family Medicine | DX: Z12.2 Encounter for screening for malignant neoplasm of respiratory organs (principal); Z87.891 Personal history of nicotine dependence | CPT/HCPCS: 71271 ==

== ENCOUNTER 2021-09-04 15:29 | Emergency (ER) | payer MEDICARE ==
[2021-09-04] MEDS ORDERED: HYDROcodone/Acetaminophen 5/325 mg Tablet ONE (18:28)
== END 2021-09-04 18:33 | disposition home or self-care (01) ==
LOC: ERS 15:29
DX: B02.9 Zoster without complications (principal); G62.9 Polyneuropathy, unspecified; J44.9 Chronic obstructive pulmonary disease, unspecified; Z87.891 Personal history of nicotine dependence
CPT/HCPCS: 99283

== ENCOUNTER 2021-09-21 07:55 | Emergency (ER) | payer MEDICARE ==
[2021-09-21] MEDS ORDERED: Lidocaine 4% Cream 5 GM TUBE w/ Tegaderm ONE (08:33)
== END 2021-09-21 09:28 | disposition home or self-care (01) ==
LOC: ERS 07:55
DX: B02.29 Other postherpetic nervous system involvement (principal); J44.9 Chronic obstructive pulmonary disease, unspecified; Z87.891 Personal history of nicotine dependence; Z79.899 Other long term (current) drug therapy
CPT/HCPCS: 99282

== ENCOUNTER 2023-02-21 13:36 | Emergency (ER) | payer MEDICARE ==
[2023-02-21 14:14] LABS: #Basophils 0.1 thou/uL (0.0-0.2); #Eosinphils 0.2 thou/uL (0.0-0.7); #Lymphocytes 1.3 thou/uL (1.20-3.40); #Monocytes 1.4 thou/uL (0.11-0.59); #Neutrophils 9.6 thou/uL (1.40-6.50); %Basophils 0.4 % (0.0-1.0); %Eosinophils 1.6 % (0.0-10.0); %Lymphocytes 10.5 % (21.0-51.0); %Neutrophils 76.5 % (42.0-75.0); Hemoglobin 15.5 g/dL (14.0-18.0); Mean Corpuscular HGB CONC 33.5 g/dL (32.0-36.0); Mean Corpuscular Hemoglobin 32.3 pg (27.0-31.0); Mean Corpuscular Volume 96.5 fl (78.0-98.0); Mean Platelet Volume 7.4 fL (7.4-10.4); Platelet Count 173 10x3/uL (130-400); RBC Distribution Width 12.7 % (11.5-14.5); White Blood Cell (WBC) Count 12.6 10x3/uL (4.8-10.8)
[2023-02-21 14:34] LABS: ALT (SGPT) 13 U/L (8-55); AST (SGOT) 15 U/L (5-34); Alkaline Phosphatase 55 U/L (40-110); Anion Gap 12 mmol/L (10-20); BUN (Urea Nitrogen) 21 mg/dL (8.4-25.7); Bilirubin, Total 1.5 mg/dL (0.2-1.2); Calc. Creatinine Clearance 0 mL/min (70-130); Calcium 9.2 mg/dL (7.8-10.44); Carbon Dioxide 28 mmol/L (23-31); Chloride 100 mmol/L (98-107); Estimated GFR 76; Globulin 3.2 g/dL (2.4-3.5); Glucose 95 mg/dL (83-110); Potassium 4.4 mmol/L (3.5-5.1); Protein, Total 7.2 g/dL (5.8-8.1); Sodium 136 mmol/L (136-145)
[2023-02-21] MEDS ORDERED: Piperacillin/Tazobactam 4.5 GM VIAL ONE (17:48)
[2023-02-21 17:54] LABS: Lactic Acid 0.8 mmol/L (0.5-2.2)
[2023-02-21] MEDS ORDERED: VANCOMYCIN 2 GRAM/500 ML BAG 2 GM in Premix Bag 1 BAG IVPB SCH (19:15)
== END 2023-02-21 21:52 | disposition home or self-care (01) ==
LOC: ERS 13:36
DX: L03.116 Cellulitis of left lower limb (principal); D72.829 Elevated white blood cell count, unspecified; J44.9 Chronic obstructive pulmonary disease, unspecified; Z87.891 Personal history of nicotine dependence
CPT/HCPCS: 73630; 80053; 83605; 85025; 96365; 96366; 96367; 99283; J3370; 36415; J2543

== ENCOUNTER 2023-02-24 10:09 | Inpatient (IN) | payer MEDICARE ==
[~2023-02-24 10:09] MED LIST: Iopamidol 370 76% 100 ML VIAL ONE
[2023-02-24 11:02] LABS: #Eosinphils 0.3 thou/uL (0.0-0.7); #Lymphocytes 1.3 thou/uL (1.20-3.40); #Monocytes 0.9 thou/uL (0.11-0.59); #Neutrophils 5.5 thou/uL (1.40-6.50); %Basophils 0.5 % (0.0-1.0); %Eosinophils 3.2 % (0.0-10.0); %Lymphocytes 16.1 % (21.0-51.0); %Monocytes 11.3 % (0.0-10.0); %Neutrophils 68.9 % (42.0-75.0); Hemoglobin 15.1 g/dL (14.0-18.0); Mean Corpuscular HGB CONC 33.8 g/dL (32.0-36.0); Mean Corpuscular Hemoglobin 32.3 pg (27.0-31.0); Mean Corpuscular Volume 95.7 fl (78.0-98.0); Mean Platelet Volume 7.3 fL (7.4-10.4); Platelet Count 197 10x3/uL (130-400); RBC Distribution Width 12.7 % (11.5-14.5); Red Blood Cell (RBC) Count 4.67 mill/uL (4.70-6.10)
[2023-02-24 11:15] LABS: ALT (SGPT) 11 U/L (8-55); AST (SGOT) 15 U/L (5-34); Albumin 3.8 g/dL (3.4-4.8); Alkaline Phosphatase 52 U/L (40-110); Anion Gap 12 mmol/L (10-20); BUN (Urea Nitrogen) 19 mg/dL (8.4-25.7); Bilirubin, Total 1.2 mg/dL (0.2-1.2); Calc. Creatinine Clearance 0 mL/min (70-130); Calcium 9.2 mg/dL (7.8-10.44); Carbon Dioxide 27 mmol/L (23-31); Chloride 102 mmol/L (98-107); Estimated GFR 63; Globulin 3.1 g/dL (2.4-3.5); Glucose 96 mg/dL (83-110); Potassium 3.9 mmol/L (3.5-5.1); Protein, Total 6.9 g/dL (5.8-8.1); Sodium 137 mmol/L (136-145)
[2023-02-24] MEDS ORDERED: Boostrix 0.5 ML (Tdap) VIAL (>/=7 yrs of age) ONE (11:22)
[2023-02-24] MEDS ORDERED: Piperacillin/Tazobactam 4.5 GM VIAL ONE (11:22)
[2023-02-24] MEDS ORDERED: VANCOMYCIN 2 GRAM/500 ML BAG 2 GM in Premix Bag 1 BAG IVPB SCH (13:00)
[2023-02-24] MEDS ORDERED: Piperacillin/Tazobactam 4.5 GM in Sodium Chloride 0.9% 100 ML IVPB SCH (16:30)
[2023-02-24] MEDS ORDERED: HYDROcodone/Acetaminophen 5/325 mg Tablet PO PRN (16:30)
[2023-02-24] MEDS ORDERED: Bisacodyl 5 MG TAB PO PRN (16:30)
[2023-02-24] MEDS ORDERED: Acetaminophen 325 MG TAB PO PRN (16:30)
[2023-02-24 17:02] VITALS: BMI 36.6
[2023-02-24] MEDS: Piperacillin/Tazobactam 3.375 GM in Sodium Chloride 0.9% 100 ML IVPB SCH (17:55)
[2023-02-24] MEDS ORDERED: Ipratropium/Albuterol 3 ML NEB NEB SCH (19:00)
[2023-02-24] MEDS: HYDROcodone/Acetaminophen 5/325 mg Tablet PO PRN (22:32)
[2023-02-24] MEDS: Melatonin 3 MG TAB PO PRN (22:37)
[2023-02-25] MEDS: Piperacillin/Tazobactam 3.375 GM in Sodium Chloride 0.9% 100 ML IVPB SCH ×3 (02:51→18:16)
[2023-02-25 06:15] LABS: #Eosinphils 0.4 thou/uL (0.0-0.7); #Lymphocytes 1.7 thou/uL (1.20-3.40); #Neutrophils 4.5 thou/uL (1.40-6.50); %Basophils 0.5 % (0.0-1.0); %Eosinophils 5.2 % (0.0-10.0); %Monocytes 12.7 % (0.0-10.0); %Neutrophils 59.5 % (42.0-75.0); Hemoglobin 14.1 g/dL (14.0-18.0); Mean Corpuscular HGB CONC 32.9 g/dL (32.0-36.0); Mean Corpuscular Hemoglobin 31.6 pg (27.0-31.0); Mean Corpuscular Volume 96.1 fl (78.0-98.0); Mean Platelet Volume 7.4 fL (7.4-10.4); Platelet Count 195 10x3/uL (130-400); RBC Distribution Width 12.5 % (11.5-14.5); Red Blood Cell (RBC) Count 4.45 mill/uL (4.70-6.10); White Blood Cell (WBC) Count 7.6 10x3/uL (4.8-10.8)
[2023-02-25 06:34] LABS: Anion Gap 10 mmol/L (10-20); BUN (Urea Nitrogen) 17 mg/dL (8.4-25.7); Calc. Creatinine Clearance 89 mL/min (70-130); Calcium 8.8 mg/dL (7.8-10.44); Carbon Dioxide 26 mmol/L (23-31); Chloride 106 mmol/L (98-107); Estimated GFR 73; Glucose 93 mg/dL (83-110); Sodium 138 mmol/L (136-145)
[2023-02-25] MEDS: Ipratropium 200 Puff Oral Inhaler INH SCH ×3 (07:05→18:29)
[2023-02-25] MEDS: Albuterol 200 PUFF (6.7GM INHALER) INH SCH ×3 (07:05→18:29)
[2023-02-25] MEDS: Atorvastatin Calcium 10 MG TAB PO SCH (08:30)
[2023-02-25] MEDS ORDERED: VANCOMYCIN 2 GRAM/500 ML BAG 2 GM in Premix Bag 1 BAG IVPB SCH (14:00)
[2023-02-25] MEDS: Melatonin 3 MG TAB PO PRN (22:04)
[2023-02-25] MEDS: HYDROcodone/Acetaminophen 5/325 mg Tablet PO PRN (22:04)
[2023-02-26] MEDS: Piperacillin/Tazobactam 3.375 GM in Sodium Chloride 0.9% 100 ML IVPB SCH ×2 (02:32→09:20)
[2023-02-26] MEDS: Ipratropium 200 Puff Oral Inhaler INH SCH ×2 (06:35→12:49)
[2023-02-26] MEDS: Albuterol 200 PUFF (6.7GM INHALER) INH SCH ×2 (06:35→12:49)
[2023-02-26 07:13] LABS: Anion Gap 9 mmol/L (10-20); BUN (Urea Nitrogen) 15 mg/dL (8.4-25.7); Calc. Creatinine Clearance 91 mL/min (70-130); Calcium 8.8 mg/dL (7.8-10.44); Carbon Dioxide 28 mmol/L (23-31); Chloride 107 mmol/L (98-107); Estimated GFR 75; Glucose 86 mg/dL (83-110); Potassium 4.2 mmol/L (3.5-5.1); Sodium 140 mmol/L (136-145)
[2023-02-26] MEDS: Atorvastatin Calcium 10 MG TAB PO SCH (09:20)
[2023-02-26 13:52] VITALS: BP 127/61; TEMP 97.4
[2023-02-26 13:55] LABS: Vancomycin, Trough 12.2 ug/mL
== END 2023-02-26 14:07 | disposition home or self-care (01) | DRG 603 ==
LOC: ERS 10:09 → T4-A 12:24
PROVIDERS: ADMIT Internal Medicine; ATTEND Family Medicine
DX: L03.116 Cellulitis of left lower limb (principal); J96.11 Chronic respiratory failure with hypoxia; E78.5 Hyperlipidemia, unspecified; J44.9 Chronic obstructive pulmonary disease, unspecified; Z91.013 Allergy to seafood; Z91.041 Radiographic dye allergy status; Z79.899 Other long term (current) drug therapy; Z99.81 Dependence on supplemental oxygen; Z87.891 Personal history of nicotine dependence; Z90.49 Acquired absence of other specified parts of digestive tract; Z98.890 Other specified postprocedural states; D72.829 Elevated white blood cell count, unspecified
CPT/HCPCS: 36415; 76999; 80048; 80053; 80202; 83605; 85025; 87040; 90715; 94640; 96365; 96366; 96367; J1650; J2543; J3370; J3490; J7620; Q9967